=== PATIENT | male | born 1960 | race Caucasian/White ===

== ENCOUNTER 2018-10-14 02:25 | Inpatient (IN) | payer MEDICAID, OTHER ==
[2018-10-14 03:55] LABS: HEMATOCRIT 34.2 % (42.0-52.0); HEMOGLOBIN 11.2 g/dl (14.0-18.0); MEAN CORPUSCULAR HEMOGLOBIN 25.1 pg (29.0-33.0); MEAN CORPUSCULAR HGB CONC 32.7 g/dl (32.0-37.0); MEAN CORPUSCULAR VOLUME 76.5 fl (82.0-101.0); MEAN PLATELET VOLUME 10.2 fl (7.4-10.4); PLATELET COUNT 168 10^3/UL (140-415); RED BLOOD COUNT 4.47 10^6/ul (4.70-6.10); RED CELL DISTRIBUTION WIDTH 19.7 % (11.5-14.5)
[2018-10-14 03:55] LABS: WHITE BLOOD COUNT 6.1 10^3/ul (4.8-10.8)
[2018-10-14 03:59] LABS: ANION GAP 11 (5-13); BLOOD UREA NITROGEN 30 mg/dl (7-20); CALCIUM 8.7 mg/dl (8.4-10.2); CARBON DIOXIDE 22 mmol/L (21-31); CHLORIDE 97 mmol/L (97-110); CREATININE 1.51 mg/dl (0.61-1.24); Estimated GFR 48 mL/min (>60); GLUCOSE 102 mg/dl (70-220); SODIUM 130 mmol/L (135-144)
[2018-10-14 04:03] LABS: POTASSIUM 6.1 mmol/L (3.5-5.1)
[2018-10-14 04:11] LABS: TROPONIN-I < 0.012 ng/ml (0.000-0.120)
[2018-10-14 04:21] LABS: ADD MAN DIFF? YES
[2018-10-14] MEDS ORDERED: DEXTROSE 50% 50 ML SYRINGE IV (05:00)
[2018-10-14 05:09] LABS: ANISOCYTOSIS 1+ (0-0); EOSINOPHILS % (M) 1 % (0-7); HYPOCHROMASIA 2+ (0-0); LYMPHOCYTES #M 1.2 10^3/ul (0.8-2.9); LYMPHOCYTES % (M) 20 % (15-51); METAMYELOCYTES #M 0.1 10^3/ul (0.0-0.0); METAMYELOCYTES %M 3 % (0-0); MONOCYTES % (M) 17 % (0-11); OVALOCYTES 1+ (0-0); PLATELET ESTIMATE NORMAL; POIKILOCYTOSIS 1+ (0-0); POLYCHROMASIA 1+ (0-0); PROMYELOCYTES #M 0.1 10^3/ul (0-0); PROMYELOCYTES % (M) 3 % (0-0); SEGMENTED NEUTROPHILS (M) % 56 % (39-77); SMUDGE%M 14 % (0-0)
[2018-10-14] MEDS: INSULIN REGULAR, HUMAN 100 UNIT/1 ML 3ML VIAL IVP (05:19)
[2018-10-14] MEDS: DEXTROSE 50% 50 ML SYRINGE IV (05:19)
[2018-10-14] MEDS: SOD CHLORIDE 0.9% 1,000 ML IV (05:25)
[2018-10-14] MEDS: NA POLYST SULFON 15 GM/60 ML BTL PO (05:29)
[2018-10-14] MEDS ORDERED: NACL 0.9% 3 ML SYG IV ×2 (05:30→10:30)
[2018-10-14] MEDS ORDERED: morphine 2 MG INJ IV ×2 (05:30→10:30)
[2018-10-14] MEDS ORDERED: ONDANSETRON 4 MG INJ IV ×3 (05:30→10:30)
[2018-10-14] MEDS ORDERED: ACETAMINOPHEN 325 MG TAB PO ×2 (05:30→10:30)
[2018-10-14 06:11] LABS: TROPONIN-I < 0.012 ng/ml (0.000-0.120)
[2018-10-14] MEDS ORDERED: ALBUTEROL/IPRATROPIUM (NEB) 3 ML AMP HHN (10:30)
[2018-10-14] MEDS ORDERED: hydrALAzine 20 MG INJ IV (10:30)
[2018-10-14] MEDS ORDERED: HYDROCODONE/APAP (5/325) TAB PO (10:30)
[2018-10-14] MEDS ORDERED: DOCUSATE SODIUM 100 MG CAP PO (10:30)
[2018-10-14] MEDS ORDERED: NITROGLYCERIN (SL) 0.4 MG TAB SL (10:30)
[2018-10-14] MEDS ORDERED: MAGNESIUM HYDROXIDE 30ML CUP PO (10:30)
[2018-10-14] MEDS ORDERED: LORAZEPAM 2 MG INJ IV (10:30)
[2018-10-14 10:42] LABS: ALANINE AMINOTRANSFERASE 31 IU/L (13-69); ALBUMIN 2.1 g/dl (3.3-4.9); ALKALINE PHOSPHATASE 217 IU/L (42-121); ASPARTATE AMINO TRANSFERASE 43 IU/L (15-46); BILIRUBIN,INDIRECT 0.2 mg/dl (0-1.1); BILIRUBIN,TOTAL 0.2 mg/dl (0.2-1.3); TOTAL PROTEIN 4.9 g/dl (6.1-8.1)
[2018-10-14 12:05] LABS: CREATINE KINASE 43 IU/L (23-200)
[2018-10-14 12:13] LABS: AMMONIA < 9 umol/l (9-30)
[2018-10-14 12:19] LABS: CK INDEX 2.9; CK-MB 1.26 ng/ml (0.0-2.4); TROPONIN-I < 0.012 ng/ml (0.000-0.120)
[2018-10-14 12:24] LABS: FREE T4 (FREE THYROXINE) 1.85 ng/dl (0.64-1.79)
[2018-10-14 12:49] LABS: HIV 1&2 ANTIBODY NEGATIVE (NEGATIVE)
[2018-10-15] MEDS ORDERED: PANTOPRAZOLE (EC) 40 MG TAB PO (06:00)
[2018-10-16 17:41] LABS: LYMPHOCYTE - % CD4 (HELPER) 56 % (30-61); LYMPHOCYTE - %CD8 (SUPPRESSOR) 16 % (12-42); LYMPHOCYTE - ABSOLUTE 791 cells/uL (850-3900); LYMPHOCYTE - ABSOLUTE CD4 442 cells/uL (490-1740); LYMPHOCYTE - ABSOLUTE CD8 126 cells/uL (180-1170); LYMPHOCYTE - CD4/CD8 RATIO 3.49 (0.86-5.00)
== END 2018-10-14 11:31 | disposition left against medical advice (07) | DRG 313 ==
LOC: E/R 02:25 → 6WM 05:04
DX: R07.9 Chest pain, unspecified (principal); R53.1 Weakness
CPT/HCPCS: 36415; 71045; 80048; 80076; 82140; 82550; 82553; 82962; 84439; 84484; 85025; 86360; 86703; 87536; 93005; 93306; 99291-25

== ENCOUNTER → 2018-10-22 | Emergency (ER) | payer MEDICAID ==
[2018-10-22] MEDS: LIDOCAINE 1% (MPF) 5 ML VIAL (11:40)
== END | disposition home or self-care (01) ==
LOC: E/R 09:10
DX: R18.8 Other ascites (principal); Z21 Asymptomatic human immunodeficiency virus [HIV] infection status
CPT/HCPCS: 99285-25; Z7502

== ENCOUNTER 2018-10-25 12:12 | Emergency (ER) | payer MEDICAID ==
[2018-10-25 15:01] LABS: ADD MAN DIFF? NO
[2018-10-25 15:06] LABS: BASOPHILS % 0.5 % (0.0-2.0); EOSINOPHILS # 0.1 10^3/ul (0.0-0.5); EOSINOPHILS % 1.4 % (0.0-7.0); HEMATOCRIT 34.2 % (42.0-52.0); HEMOGLOBIN 10.8 g/dl (14.0-18.0); LYMPHOCYTES # 1.2 10^3/ul (0.8-2.9); MEAN CORPUSCULAR HEMOGLOBIN 24.3 pg (29.0-33.0); MEAN CORPUSCULAR HGB CONC 31.6 g/dl (32.0-37.0); MEAN PLATELET VOLUME 9.5 fl (7.4-10.4); MONOCYTE # 0.8 10^3/ul (0.3-0.9); MONOCYTES % 14.3 % (0.0-11.0); NEUTROPHIL # 3.6 10^3/ul (1.6-7.5); NEUTROPHILS % 62.3 % (39.0-77.0); PLATELET COUNT 208 10^3/UL (140-415); RED BLOOD COUNT 4.44 10^6/ul (4.70-6.10); RED CELL DISTRIBUTION WIDTH 19.8 % (11.5-14.5)
[2018-10-25 15:06] LABS: WHITE BLOOD COUNT 5.8 10^3/ul (4.8-10.8)
[2018-10-25 15:22] LABS: ALANINE AMINOTRANSFERASE 27 IU/L (13-69); ALBUMIN 2.7 g/dl (3.3-4.9); ALBUMIN/GLOBULIN RATIO 0.75; ALKALINE PHOSPHATASE 392 IU/L (42-121); ANION GAP 6 (5-13); ASPARTATE AMINO TRANSFERASE 54 IU/L (15-46); BILIRUBIN,INDIRECT 0.2 mg/dl (0-1.1); BILIRUBIN,TOTAL 0.2 mg/dl (0.2-1.3); BLOOD UREA NITROGEN 32 mg/dl (7-20); CALCIUM 8.3 mg/dl (8.4-10.2); CARBON DIOXIDE 22 mmol/L (21-31); CHLORIDE 103 mmol/L (97-110); CREATININE 1.38 mg/dl (0.61-1.24); Estimated GFR 53 mL/min (>60); GLUCOSE 154 mg/dl (70-220); LIPASE 223 U/L (23-300); POTASSIUM 5.5 mmol/L (3.5-5.1); SODIUM 131 mmol/L (135-144); TOTAL PROTEIN 6.3 g/dl (6.1-8.1)
[2018-10-25 15:35] LABS: INR 1.02; PARTIAL THROMBOPLASTIN TIME 28.9 Sec (23.0-35.0); PROTIME 13.5 Sec (11.9-14.9); PT RATIO 1.1
[2018-10-25] MEDS: LIDOCAINE 1% (MPF) 5 ML VIAL (16:58)
== END 2018-10-25 17:55 | disposition home or self-care (01) ==
LOC: E/R 12:12
DX: K70.31 Alcoholic cirrhosis of liver with ascites (principal); Z21 Asymptomatic human immunodeficiency virus [HIV] infection status
CPT/HCPCS: 80053; 83690; 85025; 85610; 85730; 99284-25

== ENCOUNTER 2018-11-01 09:53 | Emergency (ER) | payer MEDICAID ==
[2018-11-01] MEDS: LIDOCAINE 1% (MPF) 5 ML VIAL (13:08)
== END 2018-11-01 13:48 | disposition home or self-care (01) ==
LOC: E/R 09:53
DX: K70.31 Alcoholic cirrhosis of liver with ascites (principal); Z21 Asymptomatic human immunodeficiency virus [HIV] infection status; Z87.891 Personal history of nicotine dependence
CPT/HCPCS: 99285-25; Z7502

== ENCOUNTER 2018-12-05 09:38 | Emergency (ER) | payer MEDICAID ==
[2018-12-05 10:55] LABS: ADD MAN DIFF? NO
[2018-12-05 10:57] LABS: ABNORMAL IP MESSAGE 1; BASOPHILS % 0.6 % (0.0-2.0); EOSINOPHILS # 0.1 10^3/ul (0.0-0.5); EOSINOPHILS % 0.9 % (0.0-7.0); HEMATOCRIT 36.5 % (42.0-52.0); HEMOGLOBIN 11.7 g/dl (14.0-18.0); LYMPHOCYTES # 1.3 10^3/ul (0.8-2.9); MEAN CORPUSCULAR HEMOGLOBIN 26.3 pg (29.0-33.0); MEAN CORPUSCULAR HGB CONC 32.1 g/dl (32.0-37.0); MEAN PLATELET VOLUME 11.2 fl (7.4-10.4); MONOCYTE # 0.7 10^3/ul (0.3-0.9); MONOCYTES % 12.5 % (0.0-11.0); NEUTROPHIL # 3.3 10^3/ul (1.6-7.5); NEUTROPHILS % 61.4 % (39.0-77.0); PLATELET COUNT 151 10^3/UL (140-415); POSITIVE DIFF @See below; RED BLOOD COUNT 4.45 10^6/ul (4.70-6.10); RED CELL DISTRIBUTION WIDTH 21.2 % (11.5-14.5)
[2018-12-05 10:57] LABS: WHITE BLOOD COUNT 5.3 10^3/ul (4.8-10.8)
[2018-12-05 11:17] LABS: INR 1.08; PARTIAL THROMBOPLASTIN TIME 24.3 Sec (23.0-35.0); PROTIME 14.1 Sec (11.9-14.9); PT RATIO 1.1
[2018-12-05 11:20] LABS: ALANINE AMINOTRANSFERASE 24 IU/L (13-69); ALBUMIN 2.5 g/dl (3.3-4.9); ALBUMIN/GLOBULIN RATIO 0.71; ALKALINE PHOSPHATASE 250 IU/L (42-121); ANION GAP 5 (5-13); ASPARTATE AMINO TRANSFERASE 33 IU/L (15-46); BILIRUBIN,INDIRECT 0.5 mg/dl (0-1.1); BILIRUBIN,TOTAL 0.5 mg/dl (0.2-1.3); BLOOD UREA NITROGEN 27 mg/dl (7-20); CALCIUM 8.1 mg/dl (8.4-10.2); CARBON DIOXIDE 26 mmol/L (21-31); CHLORIDE 101 mmol/L (97-110); CREATININE 1.68 mg/dl (0.61-1.24); Estimated GFR 42 mL/min (>60); GLUCOSE 115 mg/dl (70-220); SODIUM 132 mmol/L (135-144)
== END 2018-12-05 12:09 | disposition home or self-care (01) ==
LOC: E/R 09:38
DX: L03.311 Cellulitis of abdominal wall (principal); Z21 Asymptomatic human immunodeficiency virus [HIV] infection status
CPT/HCPCS: 80053; 85025; 85610; 85730; 99283

== ENCOUNTER 2018-12-06 07:55 | Emergency (ER) | payer MEDICAID ==
[2018-12-06] MEDS: FENTAnyl 50 MCG/ML VIAL IV (08:54)
[2018-12-06] MEDS: LIDOCAINE 1% (MPF) 5 ML VIAL (10:13)
== END 2018-12-06 10:26 | disposition home or self-care (01) ==
LOC: E/R 07:55
DX: K70.31 Alcoholic cirrhosis of liver with ascites (principal)
CPT/HCPCS: 99285-25; Z7502

== ENCOUNTER 2018-12-18 09:45 | Emergency (ER) | payer MEDICAID ==
[2018-12-18] MEDS: LIDOCAINE 1% (MPF) 5 ML VIAL (11:40)
== END 2018-12-18 12:12 | disposition home or self-care (01) ==
LOC: E/R 09:45
DX: K70.31 Alcoholic cirrhosis of liver with ascites (principal); Z48.817 Encounter for surgical aftercare following surgery on the skin and subcutaneous tissue
CPT/HCPCS: 99285-25; Z7502

== ENCOUNTER 2018-12-19 08:47 | Emergency (ER) | payer MEDICAID ==
[2018-12-19 10:33] LABS: ADD MAN DIFF? NO
[2018-12-19 10:34] LABS: WHITE BLOOD COUNT 4.3 10^3/ul (4.8-10.8)
[2018-12-19 10:35] LABS: BASOPHILS % 0.5 % (0.0-2.0); EOSINOPHILS % 0.7 % (0.0-7.0); HEMATOCRIT 41.1 % (42.0-52.0); LYMPHOCYTES % 22.8 % (15.0-51.0); MEAN CORPUSCULAR HEMOGLOBIN 26.1 pg (29.0-33.0); MEAN CORPUSCULAR HGB CONC 31.6 g/dl (32.0-37.0); MEAN CORPUSCULAR VOLUME 82.4 fl (82.0-101.0); MEAN PLATELET VOLUME 10.3 fl (7.4-10.4); MONOCYTE # 0.5 10^3/ul (0.3-0.9); MONOCYTES % 12.7 % (0.0-11.0); NEUTROPHIL # 2.7 10^3/ul (1.6-7.5); NEUTROPHILS % 62.8 % (39.0-77.0); PLATELET COUNT 216 10^3/UL (140-415); RED BLOOD COUNT 4.99 10^6/ul (4.70-6.10); RED CELL DISTRIBUTION WIDTH 20.4 % (11.5-14.5)
[2018-12-19 10:53] LABS: ANION GAP 8 (5-13); BLOOD UREA NITROGEN 26 mg/dl (7-20); CALCIUM 8.6 mg/dl (8.4-10.2); CARBON DIOXIDE 27 mmol/L (21-31); CHLORIDE 102 mmol/L (97-110); CREATININE 1.52 mg/dl (0.61-1.24); Estimated GFR 47 mL/min (>60); GLUCOSE 87 mg/dl (70-220); SODIUM 137 mmol/L (135-144)
[2018-12-19 11:03] LABS: TROPONIN-I < 0.012 ng/ml (0.000-0.120)
[2018-12-19 11:06] LABS: INR 1.04; PROTIME 13.7 Sec (11.9-14.9); PT RATIO 1.1
[2018-12-19 11:07] LABS: PARTIAL THROMBOPLASTIN TIME 29.1 Sec (23.0-35.0)
== END 2018-12-19 12:42 | disposition home or self-care (01) ==
LOC: E/R 08:47
DX: R42 Dizziness and giddiness (principal); Z21 Asymptomatic human immunodeficiency virus [HIV] infection status
CPT/HCPCS: 36415; 70450; 71045; 80048; 84484; 85025; 85610; 85730; 93005; 99285-25

== ENCOUNTER 2018-12-22 11:56 | Emergency (ER) | payer MEDICAID ==
[2018-12-22] MEDS: LIDOCAINE 1% (MPF) 5 ML VIAL (20:53)
== END 2018-12-22 14:48 | disposition home or self-care (01) ==
LOC: E/R 11:56
DX: R18.8 Other ascites (principal); R10.9 Unspecified abdominal pain; Z21 Asymptomatic human immunodeficiency virus [HIV] infection status
CPT/HCPCS: 99285-25; Z7502

== ENCOUNTER 2018-12-28 08:48 | Emergency (ER) | payer MEDICAID ==
[2018-12-28] MEDS: LIDOCAINE 1% (MPF) 5 ML VIAL (12:59)
== END 2018-12-28 16:49 | disposition left against medical advice (07) ==
LOC: E/R 08:48
DX: K70.31 Alcoholic cirrhosis of liver with ascites (principal)
CPT/HCPCS: 99285-25; Z7502

== ENCOUNTER 2018-12-31 08:43 | Emergency (ER) | payer MEDICAID ==
[2018-12-31] MEDS: LIDOCAINE 1% (MPF) 5 ML VIAL (13:52)
== END 2018-12-31 14:22 | disposition home or self-care (01) ==
LOC: E/R 08:43
DX: R18.8 Other ascites (principal)
CPT/HCPCS: 99285-25; Z7502

== ENCOUNTER 2019-01-12 09:27 | Emergency (ER) | payer MEDICAID ==
[2019-01-12 10:33] LABS: ADD MAN DIFF? NO
[2019-01-12 10:37] LABS: WHITE BLOOD COUNT 4.2 10^3/ul (4.8-10.8)
[2019-01-12 10:37] LABS: BASOPHILS % 0.7 % (0.0-2.0); EOSINOPHILS # 0.1 10^3/ul (0.0-0.5); EOSINOPHILS % 1.7 % (0.0-7.0); HEMATOCRIT 34.1 % (42.0-52.0); HEMOGLOBIN 11.2 g/dl (14.0-18.0); LYMPHOCYTES # 1.1 10^3/ul (0.8-2.9); LYMPHOCYTES % 26.3 % (15.0-51.0); MEAN CORPUSCULAR HEMOGLOBIN 26.9 pg (29.0-33.0); MEAN CORPUSCULAR HGB CONC 32.8 g/dl (32.0-37.0); MEAN CORPUSCULAR VOLUME 81.8 fl (82.0-101.0); MONOCYTE # 0.5 10^3/ul (0.3-0.9); MONOCYTES % 12.4 % (0.0-11.0); NEUTROPHIL # 2.5 10^3/ul (1.6-7.5); NEUTROPHILS % 58.7 % (39.0-77.0); PLATELET COUNT 152 10^3/UL (140-415); RED BLOOD COUNT 4.17 10^6/ul (4.70-6.10)
[2019-01-12 10:56] LABS: INR 1.16; PROTIME 14.9 Sec (11.9-14.9); PT RATIO 1.2
[2019-01-12 10:57] LABS: PARTIAL THROMBOPLASTIN TIME 31.5 Sec (23.0-35.0)
[2019-01-12] MEDS: LIDOCAINE 1% (MPF) 5 ML VIAL (12:25)
== END 2019-01-12 12:52 | disposition home or self-care (01) ==
LOC: E/R 09:27
DX: R18.8 Other ascites (principal)
CPT/HCPCS: 85025; 85610; 85730; 99285-25

== ENCOUNTER 2019-01-16 08:55 | Emergency (ER) | payer MEDICAID | END 2019-01-16 10:22 | disposition home or self-care (01) | LOC: E/R 08:55 | DX: K42.9 Umbilical hernia without obstruction or gangrene (principal); R18.8 Other ascites; R40.2142 Coma scale, eyes open, spontaneous, at arrival to emergency department; R40.2362 Coma scale, best motor response, obeys commands, at arrival to emergency department; R40.2252 Coma scale, best verbal response, oriented, at arrival to emergency department; Z21 Asymptomatic human immunodeficiency virus [HIV] infection status | CPT/HCPCS: 99282; Z7502 ==

== ENCOUNTER 2019-01-17 10:54 | Emergency (ER) | payer MEDICAID ==
[2019-01-17] MEDS: LIDOCAINE 1% (MPF) 5 ML VIAL ×2 (12:43→12:44)
== END 2019-01-17 12:53 | disposition home or self-care (01) ==
LOC: E/R 10:54
DX: R18.8 Other ascites (principal)
CPT/HCPCS: 99285-25; Z7502

== ENCOUNTER 2019-01-23 09:09 | Emergency (ER) | payer MEDICAID ==
[2019-01-23] MEDS: LIDOCAINE 1% (MPF) 5 ML VIAL (15:12)
== END 2019-01-23 15:35 | disposition home or self-care (01) ==
LOC: E/R 09:09
DX: R18.8 Other ascites (principal); R10.84 Generalized abdominal pain
CPT/HCPCS: 99285-25; Z7502

== ENCOUNTER 2019-01-28 09:26 | Emergency (ER) | payer MEDICAID ==
[2019-01-28] MEDS: LIDOCAINE 1% (MPF) 5 ML VIAL (11:24)
== END 2019-01-28 12:42 | disposition home or self-care (01) ==
LOC: E/R 09:26
DX: R18.8 Other ascites (principal)
CPT/HCPCS: 99285-25; Z7502

== ENCOUNTER 2019-02-05 08:47 | Emergency (ER) | payer MEDICAID ==
[2019-02-05] MEDS ORDERED: LIDOCAINE 1% (MDV) 20 ML INJ (10:51)
[2019-02-05] MEDS: LIDOCAINE 1% (MPF) 5 ML VIAL (11:46)
== END 2019-02-05 11:46 | disposition home or self-care (01) ==
LOC: E/R 08:47
DX: R18.8 Other ascites (principal)
CPT/HCPCS: 99285-25; C1729